=== PATIENT | female | born 1985 | race Caucasian/White ===

== ENCOUNTER 2017-06-13 08:47 | Observation (INO) | payer OTHER ==
[~2017-06-13] VITALS: Ht 165.1 cm; Wt 107.0 kg
[~2017-06-13 08:47] MED LIST: ALBU90OI INH; BENZ100A PO; CEPH500 PO; CLIN1TS TOP; CLINGEL TOP; CLOMID PO; CLON.5; CLON.5 PO; CLON1 PO; CODACE30 PO; CODGUAEL PO; CRUTCH USE; DHA; DOXY100 PO; Desyrel50 MG; ESOM20 PO; GUAI600T33 PO; HYDACE5 PO; HYDMOR4 PO; MEDR150I; METF500 PO; MULVITMINE PO; NAPR500 PO; NAPR550 PO; PHENERMINE; PRAHYD1AE TOP; PRED20 PO; PRENATAL FORMU1 EAC2 PO; PROM25 PO; Prevacid Soluta30 MG; Prevacid Soluta30 MG PO; QUET100 PO; QUET25; Ranitidine HCl150 M1 PO; STOMUL PO; VENL150ER PO; VENL37.5ER; VENL75ER; VENLAFAXINE HC150 MG PO; VITB100 PO; WITHAZ50T TOP; ZOLP10 PO; [UNRECOGNIZED DRUG - CODE]
[2017-06-13 10:03] LABS: BASOPHILS ABSOLUTE AUTO 0.05 K/mm3 (0.00-0.23); BASOPHILS PERCENT AUTO 1 % (0-2); EOSINOPHILS ABSOLUTE AUTO 0.07 K/mm3 (0.00-0.68); EOSINOPHILS PERCENT AUTO 1 % (0-6); Hematocrit 38.8 % (33.0-51.0); Hemoglobin 12.5 g/dL (11.5-16.0); IMMATURE GRAN ABSOLUTE AUTO 0.01 K/mm3 (0.00-0.10); IMMATURE GRAN PERCENT AUTO 0 % (0-1); LYMPHOCYTES ABSOLUTE AUTO 2.83 K/mm3 (0.84-5.20); LYMPHOCYTES PERCENT AUTO 34 % (21-46); MONOCYTES ABSOLUTE AUTO 0.54 K/mm3 (0.16-1.47); MONOCYTES PERCENT AUTO 7 % (4-13); Mean Corpuscular HGB 26.7 pg (26.0-34.0); Mean Corpuscular HGB Conc 32.2 g/dL (31.5-36.5); Mean Corpuscular Volume 83 fL (80-100); Mean Platelet Volume 10.9 fL (9.1-12.4); NEUTROPHILS ABSOLUTE AUTO 4.87 K/mm3 (1.96-9.15); NEUTROPHILS PERCENT AUTO 58 % (41-73); Platelet Count 324 K/mm3 (150-400); RDW Coefficient Variation 14.4 % (11.7-14.2); RDW Standard Deviation 43.1 fL (35.1-46.3); Red Blood Cell Count 4.69 M/mm3 (3.80-5.20); White Blood Cell Count 8.37 K/mm3 (4.00-11.30)
[2017-06-13 10:26] LABS: Alanine Aminotransfer (ALT/SGP 19 U/L (12-78); Albumin, Blood 3.4 g/dL (3.4-5.0); Albumin/Globulin Ratio 0.9 (0.8-1.8); Alk Phos 47 U/L (50-136); Anion Gap 9 mmol/L (6-16); Aspartate Aminotrans (AST/SGOT 8 U/L (12-37); Bilirubin, Total 0.1 mg/dL (0.1-1.0); Blood Urea Nitrogen 16 mg/dL (8-24); Bun/Creatinine Ratio 26.4 (12.0-20.0); CO2, Blood 24 mmol/L (21-32); Calcium, Blood 8.8 mg/dL (8.5-10.1); Chloride, Blood 105 mmol/L (98-108); Creatinine, Blood 0.61 mg/dL (0.40-1.00); Globulin, Blood 3.9 g/dL (2.2-4.0); Glomerular Filtration Rate >60 (60-); Glucose, Blood 106 mg/dL (70-99); Potassium, Blood 3.9 mmol/L (3.5-5.5); Sodium, Blood 138 mmol/L (136-145); Total Protein, Blood 7.3 g/dL (6.4-8.2)
[2017-06-13] MEDS ORDERED: HYDMOR2 PO (16:20)
== END 2017-06-13 16:40 | disposition home or self-care (01) ==
LOC: ER 08:47 → SURS 08:48
PROVIDERS: Physician Assistant; Surgery
PROC: BF13YZZ Fluoroscopy of Gallbladder and Bile Ducts using Other Contrast (ICD-10-PCS; 2017-06-13)
PROC: 0FT44ZZ Resection of Gallbladder, Percutaneous Endoscopic Approach (ICD-10-PCS; principal; 2017-06-13 12:45)
DX: K80.12 Calculus of gallbladder with acute and chronic cholecystitis without obstruction (principal); E11.9 Type 2 diabetes mellitus without complications; F31.9 Bipolar disorder, unspecified; E28.2 Polycystic ovarian syndrome; F17.210 Nicotine dependence, cigarettes, uncomplicated; F41.9 Anxiety disorder, unspecified; A63.0 Anogenital (venereal) warts; Z88.5 Allergy status to narcotic agent; Z88.8 Allergy status to other drugs, medicaments and biological substances; Z79.899 Other long term (current) drug therapy; Z98.890 Other specified postprocedural states
CPT/HCPCS: 36415; 74300; 76705; 80053; 81000; 81025; 82947; 83690; 85025; 88304; 93005; 93010; 96361; 96374; 96375; 99285; C1729; G0378; J0690; J1170; J1885; J2405; J2550; J2710; J3010; J7030; J7120

== ENCOUNTER → 2020-03-04 | Outpatient (CLI) | payer OTHER ==
[~2020-03-04] MED LIST changes: +Acetaminophen325 M1 PO; +DOCU100 PO; +HYDMOR2 PO; +IBUP800 PO; +PRENATE RESTOR1 EACH PO
[2020-03-04 13:19] LABS: BASOPHILS ABSOLUTE AUTO 0.04 K/mm3 (0.00-0.23); BASOPHILS PERCENT AUTO 0 % (0-2); EOSINOPHILS ABSOLUTE AUTO 0.17 K/mm3 (0.00-0.68); EOSINOPHILS PERCENT AUTO 1 % (0-6); Hematocrit 36.9 % (33.0-51.0); Hemoglobin 11.6 g/dL (11.5-16.0); IMMATURE GRAN ABSOLUTE AUTO 0.17 K/mm3 (0.00-0.10); IMMATURE GRAN PERCENT AUTO 1 % (0-1); LYMPHOCYTES ABSOLUTE AUTO 3.52 K/mm3 (0.84-5.20); LYMPHOCYTES PERCENT AUTO 24 % (21-46); MONOCYTES ABSOLUTE AUTO 1.15 K/mm3 (0.16-1.47); MONOCYTES PERCENT AUTO 8 % (4-13); Mean Corpuscular HGB 28.3 pg (26.0-34.0); Mean Corpuscular HGB Conc 31.4 g/dL (31.5-36.5); Mean Corpuscular Volume 90 fL (80-100); Mean Platelet Volume 12.3 fL (9.1-12.4); NEUTROPHILS ABSOLUTE AUTO 9.45 K/mm3 (1.96-9.15); NEUTROPHILS PERCENT AUTO 65 % (41-73); Platelet Count 263 K/mm3 (150-400); RDW Coefficient Variation 13.9 % (11.7-14.2); RDW Standard Deviation 45.3 fL (35.1-46.3)
== END | disposition home or self-care (01) ==
LOC: LAB 09:25 → LAB SHORT 09:25
PROVIDERS: Obstetrics & Gynecology
DX: O09.522 Supervision of elderly multigravida, second trimester (principal); O09.292 Supervision of pregnancy with other poor reproductive or obstetric history, second trimester; O24.112 Pre-existing type 2 diabetes mellitus, in pregnancy, second trimester
CPT/HCPCS: 83036; 85025

== ENCOUNTER 2020-05-11 09:38 | Inpatient (IN) | payer OTHER ==
[~2020-05-11] VITALS: Ht 165.1 cm; Wt 125.6 kg
[~2020-05-11 09:38] MED LIST changes: -Acetaminophen325 M1 PO; -DOCU100 PO; -IBUP800 PO; -PRENATE RESTOR1 EACH PO
[2020-05-11 10:34] LABS: BASOPHILS ABSOLUTE AUTO 0.04 K/mm3 (0.00-0.23); BASOPHILS PERCENT AUTO 0 % (0-2); EOSINOPHILS PERCENT AUTO 2 % (0-6); Hematocrit 34.5 % (33.0-51.0); Hemoglobin 11.3 g/dL (11.5-16.0); IMMATURE GRAN ABSOLUTE AUTO 0.12 K/mm3 (0.00-0.10); IMMATURE GRAN PERCENT AUTO 1 % (0-1); LYMPHOCYTES ABSOLUTE AUTO 2.86 K/mm3 (0.84-5.20); LYMPHOCYTES PERCENT AUTO 23 % (21-46); MONOCYTES ABSOLUTE AUTO 0.98 K/mm3 (0.16-1.47); MONOCYTES PERCENT AUTO 8 % (4-13); Mean Corpuscular HGB 27.8 pg (26.0-34.0); Mean Corpuscular HGB Conc 32.8 g/dL (31.5-36.5); Mean Corpuscular Volume 85 fL (80-100); Mean Platelet Volume 11.5 fL (9.1-12.4); NEUTROPHILS ABSOLUTE AUTO 8.11 K/mm3 (1.96-9.15); NEUTROPHILS PERCENT AUTO 66 % (41-73); Platelet Count 243 K/mm3 (150-400); RDW Coefficient Variation 14.7 % (11.7-14.2); RDW Standard Deviation 45.8 fL (35.1-46.3); Red Blood Cell Count 4.06 M/mm3 (3.80-5.20); White Blood Cell Count 12.31 K/mm3 (4.00-11.30)
--- NOTE | 2020-05-11 11:33 | NUR ---
BACTERIAL CULTURE COLLECTED ON WOUND ON LEFT HIP, IN THE FOLD OF THE LEG AND THE HIP.
--- NOTE | 2020-05-11 12:50 | NUR ---
REPORT TAKEN FROM DEXTER HORTON
--- NOTE | 2020-05-11 13:00 | NUR ---
REPORT GIVEN TO JODIE MOSS
--- NOTE | 2020-05-11 16:00 | NUR ---
LATE ENTRY:RN/LC ROUNDED TO HELP W/ . PT STATES SHE HAS NOT BEEN SUCCESSFUL W/ IN THE PAST BUT WOULD LIKE TO TRY. INSTRUCT/DEMO HAND EXPRESSION TO REMOVE COLOSTRUM AND GET TO NB (IN SCN). INSTRUCTED PT ON CORRECT PUMP SETTINGS AND FREQUENCY OF PUMPING. PT VERBALIZED UNDERSTANDING, DENIES ANY FURTHER QUESTIONS OR CONCERNS.
--- NOTE | 2020-05-11 16:02 | NUR ---
REPORT TO MARIA G GOODEN & KATIA RN
[2020-05-12 06:03] LABS: Hematocrit 33.8 % (33.0-51.0); Hemoglobin 10.8 g/dL (11.5-16.0); Mean Corpuscular HGB 27.8 pg (26.0-34.0); Mean Corpuscular Volume 87 fL (80-100); Mean Platelet Volume 11.8 fL (9.1-12.4); Platelet Count 239 K/mm3 (150-400); RDW Coefficient Variation 14.8 % (11.7-14.2); RDW Standard Deviation 46.5 fL (35.1-46.3); Red Blood Cell Count 3.88 M/mm3 (3.80-5.20); White Blood Cell Count 15.53 K/mm3 (4.00-11.30)
--- NOTE | 2020-05-13 09:07 | NUR ---
DISCHARGE MOTHER EDUCATED ON AND RECEIVED PRINTED DISCHARGE INSTRUCTIONS AND VERBALIZED AN UNDERSTANDING. IV PREVIOUSLY DC'D. GATHERING PERSONAL BELONGINGS. PPFU SCHEDULED. PLANNING TO DISCHARGE HOME LATER THIS MORNING.
[2020-05-13] MEDS ORDERED: CEPH500 PO (09:34)
[2020-05-13] MEDS ORDERED: IBUP800 PO (09:35)
[2020-05-13] MEDS ORDERED: Acetaminophen325 M1 PO (09:35)
[2020-05-13] MEDS ORDERED: DOCU100 PO (09:35)
--- NOTE | 2020-05-13 09:43 | NUR ---
BANDS MATCH BABY.
[2020-06-16] MEDS ORDERED: METF500 PO (12:44)
[2020-06-16] MEDS ORDERED: PRENATE RESTOR1 EACH PO (12:45)
== END 2020-05-13 09:45 | disposition home or self-care (01) | DRG 807 ==
LOC: BC 09:38 → OBS 09:38 → BC 09:39 → OBS 10:09 → BC 10:10
PROVIDERS: ADMIT Obstetrics & Gynecology
PROC: 10E0XZZ Delivery of Products of Conception, External Approach (ICD-10-PCS; principal; 2020-05-11)
PROC: 0KQM0ZZ Repair Perineum Muscle, Open Approach (ICD-10-PCS; 2020-05-11)
DX: O99.824 Streptococcus B carrier state complicating childbirth (principal); Z37.0 Single live birth; Z3A.38 38 weeks gestation of pregnancy; Z20.822 Contact with and (suspected) exposure to COVID-19; O99.214 Obesity complicating childbirth; E66.9 Obesity, unspecified; O24.12 Pre-existing type 2 diabetes mellitus, in childbirth; E11.9 Type 2 diabetes mellitus without complications; O70.1 Second degree perineal laceration during delivery; O69.81X0 Labor and delivery complicated by cord around neck, without compression, not applicable or unspecified; Z87.891 Personal history of nicotine dependence
CPT/HCPCS: 36415; 82947; 85025; 85027; 86850; 86900; 86901; 87070; 87075; 87077; 87147; 87186; 87205; A9270; J0290; J1885; J2210; J2590; J7120

== ENCOUNTER 2020-05-18 00:22 | Emergency (ER) | payer OTHER ==
[~2020-05-18] VITALS: Ht 165.1 cm; Wt 117.9 kg
[~2020-05-18 00:22] MED LIST changes: +Acetaminophen325 M1 PO; +DOCU100 PO; +IBUP800 PO
[2020-05-18 00:37] LABS: BASOPHILS ABSOLUTE AUTO 0.07 K/mm3 (0.00-0.23); BASOPHILS PERCENT AUTO 1 % (0-2); EOSINOPHILS ABSOLUTE AUTO 0.15 K/mm3 (0.00-0.68); EOSINOPHILS PERCENT AUTO 2 % (0-6); Hematocrit 32.7 % (33.0-51.0); Hemoglobin 10.6 g/dL (11.5-16.0); IMMATURE GRAN ABSOLUTE AUTO 0.11 K/mm3 (0.00-0.10); IMMATURE GRAN PERCENT AUTO 1 % (0-1); LYMPHOCYTES ABSOLUTE AUTO 3.13 K/mm3 (0.84-5.20); LYMPHOCYTES PERCENT AUTO 33 % (21-46); MONOCYTES ABSOLUTE AUTO 0.71 K/mm3 (0.16-1.47); MONOCYTES PERCENT AUTO 8 % (4-13); Mean Corpuscular HGB Conc 32.4 g/dL (31.5-36.5); Mean Corpuscular Volume 86 fL (80-100); Mean Platelet Volume 11.2 fL (9.1-12.4); NEUTROPHILS ABSOLUTE AUTO 5.19 K/mm3 (1.96-9.15); NEUTROPHILS PERCENT AUTO 56 % (41-73); Platelet Count 302 K/mm3 (150-400); RDW Coefficient Variation 14.6 % (11.7-14.2); RDW Standard Deviation 46.2 fL (35.1-46.3); Red Blood Cell Count 3.79 M/mm3 (3.80-5.20); White Blood Cell Count 9.36 K/mm3 (4.00-11.30)
[2020-05-18 00:56] LABS: Alanine Aminotransfer (ALT/SGP 24 U/L (12-78); Albumin, Blood 2.2 g/dL (3.4-5.0); Albumin/Globulin Ratio 0.6 (0.8-1.8); Alk Phos 59 U/L (50-136); Anion Gap 7 mmol/L (6-16); Aspartate Aminotrans (AST/SGOT 12 U/L (12-37); Bilirubin, Total 0.1 mg/dL (0.1-1.0); Blood Urea Nitrogen 16 mg/dL (8-24); CO2, Blood 27 mmol/L (21-32); Chloride, Blood 106 mmol/L (98-108); Creatinine, Blood 0.73 mg/dL (0.40-1.00); Globulin, Blood 3.6 g/dL (2.2-4.0); Glomerular Filtration Rate >60 (60-); Glucose, Blood 92 mg/dL (70-99); Potassium, Blood 3.8 mmol/L (3.5-5.5); Sodium, Blood 140 mmol/L (136-145); Total Protein, Blood 5.8 g/dL (6.4-8.2); Troponin I <0.015 ng/mL (0.000-0.040)
[2020-06-16] MEDS ORDERED: METF500 PO (12:44)
[2020-06-16] MEDS ORDERED: PRENATE RESTOR1 EACH PO (12:45)
== END 2020-05-18 02:14 | disposition home or self-care (01) ==
LOC: ER 00:22
PROVIDERS: Emergency Medicine
DX: O90.89 Other complications of the puerperium, not elsewhere classified (principal); R07.9 Chest pain, unspecified; R11.0 Nausea; R42 Dizziness and giddiness; O99.335 Smoking (tobacco) complicating the puerperium; F17.200 Nicotine dependence, unspecified, uncomplicated; O24.33 Unspecified pre-existing diabetes mellitus in the puerperium; E11.9 Type 2 diabetes mellitus without complications; Z79.84 Long term (current) use of oral hypoglycemic drugs; Z79.899 Other long term (current) drug therapy; Z88.5 Allergy status to narcotic agent; Z88.8 Allergy status to other drugs, medicaments and biological substances
CPT/HCPCS: 36415; 71260; 80053; 84484; 85025; 93005; 93010; 96361; 96374; 99285-25; J1885; J7030; Q9967

== ENCOUNTER 2020-06-24 10:48 | Day surgery (SDC) | payer OTHER ==
[~2020-06-24] VITALS: Ht 162.6 cm; Wt 115.4 kg
[~2020-06-24 10:48] MED LIST changes: +PRENATE RESTOR1 EACH PO
--- NOTE | 2020-06-24 11:40 | NUR ---
06/24/20 1140 Karson Love CALL LIGHT WITHIN REACH
--- NOTE | 2020-06-24 12:17 | NUR ---
06/24/20 1217 Adarsh Martinez ABDOMINAL AREA PREPPED BY ORSC.KNM W/ DURAPREP. DREW AREA PREPPED BY ORSC.CRISTINA WITH BETADINE SOLUTION. BUPIVACAINE 0.5% 30 MLS MIXED WITH EPI 0.15ML PER ORDER TO MAKE BUPIVACAINE 0.5% 1:200,000 FOR INJECTION AT [facility] BY DR. SANCHEZ. 10 MLS OF THIS INJECTED BY DR. SANCHEZ AT [facility].
== END 2020-06-24 13:10 | disposition home or self-care (01) ==
LOC: ORSCSDS 10:48
PROVIDERS: Obstetrics & Gynecology
PROC: 0UT74ZZ Resection of Bilateral Fallopian Tubes, Percutaneous Endoscopic Approach (ICD-10-PCS; principal; 2020-06-24 12:00)
DX: Z30.2 Encounter for sterilization (principal); E11.9 Type 2 diabetes mellitus without complications; E66.01 Morbid (severe) obesity due to excess calories; Z68.41 Body mass index [BMI] 40.0-44.9, adult; Z79.84 Long term (current) use of oral hypoglycemic drugs; Z79.899 Other long term (current) drug therapy
CPT/HCPCS: 82947; 88302; J0171; J0330; J1100; J1885; J2250; J2405; J2704; J3010; J7120

== ENCOUNTER 2020-10-31 05:22 | Observation (INO) | payer OTHER ==
[~2020-10-31] VITALS: Ht 165.1 cm; Wt 113.4 kg
[2020-10-31 05:49] LABS: BASOPHILS ABSOLUTE AUTO 0.08 K/mm3 (0.00-0.23); BASOPHILS PERCENT AUTO 1 % (0-2); EOSINOPHILS ABSOLUTE AUTO 0.11 K/mm3 (0.00-0.68); EOSINOPHILS PERCENT AUTO 1 % (0-6); Hematocrit 38.1 % (33.0-51.0); Hemoglobin 12.6 g/dL (11.5-16.0); Mean Corpuscular HGB 29.1 pg (26.0-34.0); Mean Corpuscular HGB Conc 33.1 g/dL (31.5-36.5); Mean Corpuscular Volume 88 fL (80-100); Mean Platelet Volume 10.7 fL (9.1-12.4); Platelet Count 331 K/mm3 (150-400); RDW Coefficient Variation 14.5 % (11.7-14.2); RDW Standard Deviation 46.4 fL (35.1-46.3); Red Blood Cell Count 4.33 M/mm3 (3.80-5.20); White Blood Cell Count 15.37 K/mm3 (4.00-11.30)
[2020-10-31 05:52] LABS: IMMATURE GRAN ABSOLUTE AUTO 0.06 K/mm3 (0.00-0.10); IMMATURE GRAN PERCENT AUTO 0 % (0-1); LYMPHOCYTES ABSOLUTE AUTO 4.01 K/mm3 (0.84-5.20); LYMPHOCYTES PERCENT AUTO 26 % (21-46); MONOCYTES ABSOLUTE AUTO 1.05 K/mm3 (0.16-1.47); MONOCYTES PERCENT AUTO 7 % (4-13); NEUTROPHILS ABSOLUTE AUTO 10.06 K/mm3 (1.96-9.15); NEUTROPHILS PERCENT AUTO 66 % (41-73)
[2020-10-31 06:07] LABS: Alanine Aminotransfer (ALT/SGP 24 U/L (12-78); Albumin, Blood 3.5 g/dL (3.4-5.0); Albumin/Globulin Ratio 0.9 (0.8-1.8); Alk Phos 77 U/L (50-136); Anion Gap 12 mmol/L (6-16); Aspartate Aminotrans (AST/SGOT 14 U/L (12-37); Bilirubin, Total 0.4 mg/dL (0.1-1.0); Blood Urea Nitrogen 16 mg/dL (8-24); Bun/Creatinine Ratio 10.3 (12.0-20.0); CO2, Blood 19 mmol/L (21-32); Calcium, Blood 8.9 mg/dL (8.5-10.1); Chloride, Blood 111 mmol/L (98-108); Creatinine, Blood 1.56 mg/dL (0.40-1.00); Ethanol (Alcohol), Blood, Med <3 mg/dL; Globulin, Blood 3.7 g/dL (2.2-4.0); Glomerular Filtration Rate 38 (60-); Glucose, Blood 110 mg/dL (70-99); Potassium, Blood 3.6 mmol/L (3.5-5.5); Salicylate <1.7 mg/dL (2.8-20.0); Sodium, Blood 142 mmol/L (136-145); Total Protein, Blood 7.2 g/dL (6.4-8.2)
[2020-10-31 06:14] LABS: Acetaminophen, Random <2.0 ug/mL (10.0-30.0)
[2020-10-31 06:23] LABS: Base Excess Venous -5.6 mmol/L; Bicarbonate Venous 20.9 mmol/L (24.0-30.0); PCO2 Venous 27.3 mmHg (38-42); PO2 Venous 105 mmHg (38-42); pH Blood Venous 7.44 (7.34-7.37)
[2020-10-31 06:25] LABS: Creatine Kinase MB 2.5 ng/mL (0.0-3.6); Creatine Kinase MB Index 1.6 (0.0-4.0)
[2020-10-31 08:12] LABS: Source, Urine Clean Catch
[2020-10-31 08:20] LABS: Bilirubin, Urine Neg (Neg); Blood, Urine 2+ (Neg); Glucose Qualitative, Urine 1+ (Neg); Ketones, Urine Neg (Neg); Leukocyte Esterase, Urine 1+ (Neg); Nitrite, Urine Neg (Neg); Protein, Urine 3+ (Neg); Urobilinogen, Urine NORM (Normal)
[2020-10-31 08:50] LABS: Appearance, Urine Hazy (Clear); Color, Urine Pale Yellow (P-Yellow)
[2020-10-31 08:51] LABS: Bacteria Few /hpf; Hyaline Casts 0-2 /lpf (0-2); Mucus Light (0-Heavy); Squamous Epithelial Cells Mod /hpf (Few); WBC Cast Rare /lpf (0)
[2020-10-31 08:52] LABS: U Amphetamine Screen Not Detected; U Barbituate Screen Not Detected; U Benzodiazapine Screen Not Detected; U Buprenorphine Screen Not Detected; U Cannabinoids Screen Not Detected; U Cocaine Screen Not Detected; U Methadone Screen Not Detected; U Methamphetamine Screen DETECTED; U Opiates Screen Not Detected; U Oxycodone Screen Not Detected; U Phencyclidine Screen Not Detected; U Propoxyphene Screen Not Detected
[2020-10-31 10:10] LABS: Test Name ETHYLENE GLYCOL; Test Name METHANOL QUANT
[2020-10-31 10:44] LABS: Bun/Creatinine Ratio 10.2 (12.0-20.0); Calcium, Blood 9.1 mg/dL (8.5-10.1); Creatinine, Blood 1.66 mg/dL (0.40-1.00); Potassium, Blood 4.1 mmol/L (3.5-5.5)
[2020-10-31 11:45] LABS: Bun/Creatinine Ratio 10.4 (12.0-20.0); Calcium, Blood 8.6 mg/dL (8.5-10.1); Creatinine, Blood 1.64 mg/dL (0.40-1.00); Potassium, Blood 3.7 mmol/L (3.5-5.5)
[2020-10-31 13:23] LABS: Bun/Creatinine Ratio 10.1 (12.0-20.0); Calcium, Blood 8.6 mg/dL (8.5-10.1); Creatinine, Blood 1.69 mg/dL (0.40-1.00); Potassium, Blood 3.6 mmol/L (3.5-5.5)
[2020-10-31 16:43] LABS: Result SEE SEPERATE REPORT
[2020-10-31 17:03] LABS: Result SEE SEPERATE REPORT
--- NOTE | 2020-10-31 18:16 | NUR ---
SHIFT SUMMARY; ASSUMED CARE FROM ER. SITTER PRESENT AT BEDSIDE, CAMERA MONITORING IN PLACE. SLEEPY THROUGHOUT SHIFT BUT WAKES EASILY. REPORTS USING METH THIS AM AND UNCLEAR IF SWALLOWED ANTIFREEZE OR TOOK METFORMIN FOR INTENTIONAL OD. ETHYNOL GLYCOL LABS PENDING ON ADMIT. VSS, CALM AND COOPERATIVE. ROOM SECURITY CHECKED AND BELONGINGS LOCKED IN CLOSET. LAB RESULTS IN AFTERNOON SHOWED NO ETHYLENE GLYCOL IN BLOOD WORK. STATES ATTEMPTED OD DUE TO PAIN. HX OF BIPOLAR. CURRENTLY LIVES AT HOME WITH MOTHER. WILL CONTINUE MONITORING SITTER. REPORT TO AGRONOMY TECHNICIAN FOR CHANGE OF SHIFT.
--- NOTE | 2020-10-31 19:25 | NUR ---
PATIENT ON PHONE WITH MOTHER AND REPORTS "LIKE SOME BAD DRUGS, YA KNOW"; REPORTS SHE TOOK SOME CHARCOAL PILLS MIXED IN MILK AND "THAT IS WHAT REALLY SAVED ME".
--- NOTE | 2020-10-31 19:44 | NUR ---
POISON CONTROL CALLED TO REPORT PATIENT'S METHANOL IS NEGATIVE; NO NEED FOR 2000 DRUG; NO MEDICATION SCHEDULED FOR 2000; THEY WILL CALL BACK IN A FEW HOURS FOR UPDATE.
--- NOTE | 2020-10-31 21:00 | NUR ---
ASSUMED CARE OF PATIENT AT APPROXIMATELY 1900 FROM MICHAEL Allen RN. PATIENT ALERT AND ORIENTED X4; APPEARS DEPRESSED. PATIENT REPORTS PAIN IN BED; ABLE TO REST IN BED. ONE ASSIST TO BATHROOM. HIGH SI PRECAUTIONS; 1:1 SITTER IN ROOM. PATIENT DENIES NAUSEA OR DIZZINESS. ST ON TELE; OXYGEN SATURATION ABOVE 90% ON ROOM AIR. NS INFUSING PER ORDER.
--- NOTE | 2020-10-31 22:41 | NUR ---
SHERRI FROM POISON CONTROL CALLED TO SAY THEY ARE CLOSING THIER CASE ON THE PATIENT DUE TO VITAL SIGNS BEING STABLE; PATIENT BEING ABLE TO EAT A SANDWICH AND DRINK WATER; ORIENTATION CLEARING UP.
--- NOTE | 2020-10-31 22:44 | NUR ---
SHERRI FROM POISON CONTROL CALLED BACK TO REPORT SHE WILL KEEP CASE OPEN DUE TO CREATININE; WILL CALL IN MORNING FOR CREATININE LEVEL.
[2020-11-01 04:54] LABS: Alanine Aminotransfer (ALT/SGP 23 U/L (12-78); Albumin, Blood 2.9 g/dL (3.4-5.0); Albumin/Globulin Ratio 0.8 (0.8-1.8); Alk Phos 72 U/L (50-136); Anion Gap 6 mmol/L (6-16); Aspartate Aminotrans (AST/SGOT 12 U/L (12-37); Bilirubin, Total 0.2 mg/dL (0.1-1.0); Blood Urea Nitrogen 18 mg/dL (8-24); Bun/Creatinine Ratio 18.3 (12.0-20.0); CO2, Blood 24 mmol/L (21-32); Calcium, Blood 7.7 mg/dL (8.5-10.1); Chloride, Blood 110 mmol/L (98-108); Creatinine, Blood 0.98 mg/dL (0.40-1.00); Globulin, Blood 3.6 g/dL (2.2-4.0); Glomerular Filtration Rate >60 (60-); Glucose, Blood 92 mg/dL (70-99); Magnesium, Blood 2.2 mg/dL (1.6-2.4); Phosphorus, Blood 3.1 mg/dL (2.5-4.9); Potassium, Blood 3.5 mmol/L (3.5-5.5); Sodium, Blood 140 mmol/L (136-145); Total Protein, Blood 6.5 g/dL (6.4-8.2)
--- NOTE | 2020-11-01 06:20 | NUR ---
PATIENT SLEPT MOST OF NIGHT; NO ACUTE CHANGES; VSS.
--- NOTE | 2020-11-01 18:16 | NUR ---
TRANSFER TO MEDICAL FLOOR PT MET TODAY WITH DR. GONZALEZ AND HER SI STATUS WAS DOWNGRADED TO LOW. PT REPORTED HAVING NO FEELINGS/THOUGHTS OR PLANS OF SUICIDE TODAY. PT WAS LETHARGIC BUT AROUSABLE AND ORIENTED. VS STABLE, PT ON RA. POISON CONTROL WAS FOLLOWING BUT SIGNED OFF TODAY SINCE KIDNEY FUNCTION HAD IMPROVED. 1:1 SITTER WAS DISCONTINUED TODAY SUICIDE RISK/PRECAUTIONS WERE LESSENED. PT WAS TRANSFERRED TO MEDICAL FLOOR RM [id number] REPORT GIVEN TO MARIA G TODD
--- NOTE | 2020-11-01 18:32 | NUR ---
SHIFT SUMMARY PT TRANSFERRED TO UNIT FROM PCU 3 THIS SHIFT. RECEIVED REPORT FROM MARIA G ANDERSON. PT AAOX4, ABLE TO MAKE NEEDS KNOWN, PLEASANT AND COOPERATIVE TO CARE. SBA TO BATHROOM. PT DENIED ANY SUICIDAL IDEATIONS, DENIES FEELING OF INCREASE ANXIETY / DEPRESSION AT THIS TIME. PT CONTINUES ON LOW SUICIDAL PRECAUTIONS. ROOM INSPECTED BY THIS RN PRIOR TO PT TRANSFER. PT CALM AND COMFORTABLE IN ROOM AT THIS TIME. BED AT LOWEST POSITION. CALL LIGHT WITHIN REACH.
--- NOTE | 2020-11-02 04:33 | NUR ---
SHIFT SUMMARY AOX4. VSS. TELE ST @116. DENIES PAIN, N/V OR SOB. DENIES ANY SI THOUGHTS OR PLANS. DROWSY, STATES SHES "TIRED". WITHDRAWN. FLAT AFFECT. TEARFUL THIS AM. STATES SHE WANTS TO GO HOME TO HER CHILDREN. PT ON MENSES. CONTINENT OF URINE. NS @100ML/HR. CALL LIGHT IN REACH, [facility].
[2020-11-02] MEDS ORDERED: TRAZ50 PO (14:19)
--- NOTE | 2020-11-02 17:42 | NUR ---
DISCHARGE SUMMARY PT DISCHARGE TO HOME THIS SHIFT. AT APPROX 1710. PT's PRESENT DURING D/C PROCESS. PT VERBALIZED UNDERSTANDING OF DISCHARGE TEACHINGS AND INSTRUCTIONS. PT AAOX4, ABLE TO MAKE NEEDS KNOWN, PLEASANT AND COOPERATIVE TO CARE. PT DENIES ANY SUICIAL IDEATIONS OR PLANS T/O SHIFT. PT PLEASANT AND COOPERATIVE TO CARE T/O SHIFT. IV LINE AND TELE DISCONTINUED PRIOR TO D/C. NO C/O PAIN OR ANY DISCOMFORT THIS SHIFT, NO CONCERNS OR ISSUES NOTED FROM PT PRIOR TO D/C. DISCHARGE PACKET GIVEN TO PT UPON DISCHARGE.
== END 2020-11-02 17:18 | disposition home or self-care (01) ==
LOC: ER 05:22 → PCU 05:23 → MEDS 11-01 18:03
PROVIDERS: Emergency Medicine; ADMIT Internal Medicine
DX: F31.89 Other bipolar disorder (principal); N17.9 Acute kidney failure, unspecified; G92 Toxic encephalopathy; E11.9 Type 2 diabetes mellitus without complications; F17.210 Nicotine dependence, cigarettes, uncomplicated; F15.10 Other stimulant abuse, uncomplicated; R07.9 Chest pain, unspecified; R11.10 Vomiting, unspecified; K21.9 Gastro-esophageal reflux disease without esophagitis; Z88.5 Allergy status to narcotic agent; Z88.8 Allergy status to other drugs, medicaments and biological substances; Z79.84 Long term (current) use of oral hypoglycemic drugs
CPT/HCPCS: 36415; 71045; 80048; 80053; 81001; 81025; 82550; 82553; 82693; 82803; 82947; 83605; 83735; 83930; 84100; 85025; 87077; 87086; 87186; 93005; 93010; 96365; 96372; 96375; 99285-25; A9270; G0378; G0480; J1451; J1650; J2060; J2405; J7030

== ENCOUNTER 2021-10-14 00:39 | Emergency (ER) | payer OTHER ==
[~2021-10-14] VITALS: Ht 165.1 cm; Wt 108.9 kg
[~2021-10-14 00:39] MED LIST changes: +TRAZ50 PO
[2021-10-14 01:15] LABS: BASOPHILS ABSOLUTE AUTO 0.03 K/mm3 (0.00-0.23); BASOPHILS PERCENT AUTO 1 % (0-2); EOSINOPHILS ABSOLUTE AUTO 0.02 K/mm3 (0.00-0.68); EOSINOPHILS PERCENT AUTO 0 % (0-6); Hematocrit 40.1 % (33.0-51.0); Hemoglobin 13.2 g/dL (11.5-16.0); IMMATURE GRAN ABSOLUTE AUTO 0.02 K/mm3 (0.00-0.10); IMMATURE GRAN PERCENT AUTO 0 % (0-1); LYMPHOCYTES ABSOLUTE AUTO 0.56 K/mm3 (0.84-5.20); LYMPHOCYTES PERCENT AUTO 12 % (21-46); MONOCYTES ABSOLUTE AUTO 0.69 K/mm3 (0.16-1.47); MONOCYTES PERCENT AUTO 15 % (4-13); Mean Corpuscular HGB 28.5 pg (26.0-34.0); Mean Corpuscular HGB Conc 32.9 g/dL (31.5-36.5); Mean Corpuscular Volume 87 fL (80-100); Mean Platelet Volume 11.5 fL (9.1-12.4); NEUTROPHILS PERCENT AUTO 72 % (41-73); Platelet Count 253 K/mm3 (150-400); RDW Standard Deviation 44.5 fL (35.1-46.3); Red Blood Cell Count 4.63 M/mm3 (3.80-5.20); White Blood Cell Count 4.62 K/mm3 (4.00-11.30)
[2021-10-14 01:41] LABS: Albumin, Blood 3.7 g/dL (3.4-5.0); Albumin/Globulin Ratio 1.1 (0.8-1.8); Bilirubin, Total 0.2 mg/dL (0.1-1.0); Bun/Creatinine Ratio 12.7 (12.0-20.0); Calcium, Blood 9.6 mg/dL (8.5-10.1); Creatinine, Blood 0.79 mg/dL (0.40-1.00); Globulin, Blood 3.4 g/dL (2.2-4.0); Potassium, Blood 3.8 mmol/L (3.5-5.5); Total Protein, Blood 7.1 g/dL (6.4-8.2)
[2021-10-14 01:56] LABS: Influenza A, PCR NEGATIVE (NEGATIVE); Influenza B, PCR NEGATIVE (NEGATIVE); Resp Syncytial Virus, PCR NEGATIVE (NEGATIVE)
[2021-10-14 04:19] LABS: SARS-Cov-2 (COVID-19) PCR, MMC POSITIVE (NEGATIVE)
== END 2021-10-14 03:45 | disposition left against medical advice (07) ==
LOC: ER 00:39
PROVIDERS: Student in an Organized Health Care Education/Training Program
DX: R11.2 Nausea with vomiting, unspecified (principal); R19.7 Diarrhea, unspecified; U07.1 COVID-19; Z53.21 Procedure and treatment not carried out due to patient leaving prior to being seen by health care provider
CPT/HCPCS: 0241U; 36415; 80053; 82947; 85025

== ENCOUNTER 2022-08-28 12:52 | Observation (INO) | payer OTHER ==
[~2022-08-28] VITALS: Ht 165.1 cm; Wt 108.9 kg
[~2022-08-28 12:52] MED LIST changes: +IBU800 MG PO
[2022-08-28] MEDS ORDERED: Norethindrone0.35 MG PO (14:01)
[2022-08-28 14:19] LABS: Source, Urine Clean Catch
[2022-08-28 14:30] LABS: Appearance, Urine Cloudy (Clear); Blood, Urine 5+ (Neg); Color, Urine Amber (P-Yellow); Glucose Qualitative, Urine Neg (Neg); Ketones, Urine 1+ (Neg); Leukocyte Esterase, Urine 1+ (Neg); Nitrite, Urine Pos (Neg); Protein, Urine 3+ (Neg); Specific Gravity, Urine 1.025 (1.003-1.022); Urobilinogen, Urine 1+ (Normal)
[2022-08-28 14:36] LABS: BASOPHILS ABSOLUTE AUTO 0.05 K/mm3 (0.00-0.23); BASOPHILS PERCENT AUTO 1 % (0-2); EOSINOPHILS ABSOLUTE AUTO 0.04 K/mm3 (0.00-0.68); EOSINOPHILS PERCENT AUTO 1 % (0-6); Hematocrit 44.3 % (33.0-51.0); Hemoglobin 14.6 g/dL (11.5-16.0); IMMATURE GRAN ABSOLUTE AUTO 0.01 K/mm3 (0.00-0.10); IMMATURE GRAN PERCENT AUTO 0 % (0-1); LYMPHOCYTES ABSOLUTE AUTO 2.22 K/mm3 (0.84-5.20); LYMPHOCYTES PERCENT AUTO 26 % (21-46); MONOCYTES ABSOLUTE AUTO 0.56 K/mm3 (0.16-1.47); MONOCYTES PERCENT AUTO 6 % (4-13); Mean Corpuscular HGB 29.6 pg (26.0-34.0); Mean Corpuscular Volume 90 fL (80-100); Mean Platelet Volume 11.1 fL (9.1-12.4); NEUTROPHILS ABSOLUTE AUTO 5.83 K/mm3 (1.96-9.15); NEUTROPHILS PERCENT AUTO 67 % (41-73); Platelet Count 361 K/mm3 (150-400); RDW Coefficient Variation 13.2 % (11.7-14.2); RDW Standard Deviation 43.1 fL (35.1-46.3); Red Blood Cell Count 4.93 M/mm3 (3.80-5.20); White Blood Cell Count 8.71 K/mm3 (4.00-11.30)
[2022-08-28 14:42] LABS: Bilirubin, Urine 1+ (Neg)
[2022-08-28 14:44] LABS: Bacteria Many /hpf; Hyaline Casts 0-2 /lpf (0-2); Red Blood Cells, Urine TNTC /hpf (0-2); Squamous Epithelial Cells Many /hpf (Few)
[2022-08-28 14:45] LABS: U Amphetamine Screen Not Detected; U Barbituate Screen Not Detected; U Benzodiazapine Screen Not Detected; U Buprenorphine Screen Not Detected; U Cannabinoids Screen DETECTED; U Cocaine Screen Not Detected; U Methadone Screen Not Detected; U Methamphetamine Screen Not Detected; U Opiates Screen Not Detected; U Oxycodone Screen Not Detected; U Phencyclidine Screen Not Detected
[2022-08-28 14:46] LABS: U Propoxyphene Screen Not Detected
[2022-08-28 14:59] LABS: Acetaminophen, Random <2.0 ug/mL (10.0-30.0); Alanine Aminotransfer (ALT/SGP 26 U/L (12-78); Albumin, Blood 3.7 g/dL (3.4-5.0); Albumin/Globulin Ratio 1.1 (0.8-1.8); Alk Phos 62 U/L (50-136); Anion Gap 8 mmol/L (6-16); Aspartate Aminotrans (AST/SGOT 18 U/L (12-37); Bilirubin, Total 0.3 mg/dL (0.1-1.0); Blood Urea Nitrogen 12 mg/dL (8-24); Bun/Creatinine Ratio 15.2 (12.0-20.0); CO2, Blood 24 mmol/L (21-32); Calcium, Blood 9.2 mg/dL (8.5-10.1); Chloride, Blood 110 mmol/L (98-108); Creatinine, Blood 0.79 mg/dL (0.40-1.00); Ethanol (Alcohol), Blood, Med <3 mg/dL; Globulin, Blood 3.5 g/dL (2.2-4.0); Glomerular Filtration Rate 99 (60-); Glucose, Blood 110 mg/dL (70-99); Potassium, Blood 4.1 mmol/L (3.5-5.5); Salicylate <1.7 mg/dL (2.8-20.0); Sodium, Blood 142 mmol/L (136-145); Total Protein, Blood 7.2 g/dL (6.4-8.2)
[2022-08-29 10:00] VITALS: BP 129/85
[2022-08-29] MEDS ORDERED: ABILIFY MYCITE5 M2 PO (16:17)
[2022-08-29] MEDS ORDERED: CEPH500 PO (16:17)
== END 2022-08-29 17:00 | disposition home or self-care (01) ==
LOC: ER 12:52 → EOR 12:53
PROVIDERS: ADMIT Student in an Organized Health Care Education/Training Program
DX: F31.32 Bipolar disorder, current episode depressed, moderate (principal); E11.9 Type 2 diabetes mellitus without complications; Z88.5 Allergy status to narcotic agent; Z88.8 Allergy status to other drugs, medicaments and biological substances; Z79.84 Long term (current) use of oral hypoglycemic drugs; Z79.899 Other long term (current) drug therapy
CPT/HCPCS: 80053; 81001; 81025; 85025; 87086; 87147; 93005; 93010; A9270; G0480

== ENCOUNTER → 2022-11-13 | Outpatient (CLI) | payer OTHER ==
[~2022-11-13] MED LIST changes: +ABILIFY MYCITE5 M2 PO; +Norethindrone0.35 MG PO
[2022-11-15 14:09] LABS: HPV 16 Negative (Negative); HPV 18 Negative (Negative); HPV OTHER HR TYPES Negative (Negative)
== END | disposition home or self-care (01) ==
LOC: LAB 11:35 → LAB SHORT 11:35
PROVIDERS: Obstetrics & Gynecology
DX: Z01.419 Encounter for gynecological examination (general) (routine) without abnormal findings (principal)
CPT/HCPCS: 87624; G0145

== ENCOUNTER → 2024-02-27 | Outpatient (CLI) | payer OTHER ==
[~2024-02-27] MED LIST changes: +Adipex-P37.5 M1 PO; +Flagyl500 MG PO
== END | disposition home or self-care (01) ==
LOC: LAB 18:41 → LAB SHORT 18:41
DX: R30.0 Dysuria (principal)
CPT/HCPCS: 87086

== ENCOUNTER 2024-07-06 10:04 | Observation (INO) | payer OTHER ==
[~2024-07-06] VITALS: Ht 165.1 cm; Wt 115.8 kg
[2024-07-06] MEDS ORDERED: ATORVASTATIN CA20 MG PO (10:19)
[2024-07-06] MEDS ORDERED: OMEP20ER PO (10:20)
[2024-07-06 10:35] LABS: BASOPHILS ABSOLUTE AUTO 0.07 K/mm3 (0.00-0.23); BASOPHILS PERCENT AUTO 1 % (0-2); EOSINOPHILS ABSOLUTE AUTO 0.12 K/mm3 (0.00-0.68); EOSINOPHILS PERCENT AUTO 1 % (0-6); Hematocrit 44.5 % (33.0-51.0); Hemoglobin 14.9 g/dL (11.5-16.0); IMMATURE GRAN ABSOLUTE AUTO 0.02 K/mm3 (0.00-0.10); IMMATURE GRAN PERCENT AUTO 0 % (0-1); LYMPHOCYTES ABSOLUTE AUTO 3.22 K/mm3 (0.84-5.20); LYMPHOCYTES PERCENT AUTO 36 % (21-46); MONOCYTES PERCENT AUTO 7 % (4-13); Mean Corpuscular HGB Conc 33.5 g/dL (31.5-36.5); Mean Corpuscular Volume 90 fL (80-100); Mean Platelet Volume 10.7 fL (9.1-12.4); NEUTROPHILS ABSOLUTE AUTO 5.01 K/mm3 (1.96-9.15); NEUTROPHILS PERCENT AUTO 56 % (41-73); Platelet Count 279 K/mm3 (150-400); RDW Coefficient Variation 13.2 % (11.7-14.2); RDW Standard Deviation 43.1 fL (35.1-46.3); Red Blood Cell Count 4.96 M/mm3 (3.80-5.20); White Blood Cell Count 9.04 K/mm3 (4.00-11.30)
[2024-07-06 10:48] LABS: Albumin, Blood 3.4 g/dL (3.4-5.0); Bilirubin, Total 0.5 mg/dL (0.1-1.0); Bun/Creatinine Ratio 13.2 (12.0-20.0); Calcium, Blood 8.4 mg/dL (8.5-10.1); Creatinine, Blood 0.76 mg/dL (0.40-1.00); Globulin, Blood 3.5 g/dL (2.2-4.0); Potassium, Blood 4.1 mmol/L (3.5-5.5); Total Protein, Blood 6.9 g/dL (6.4-8.2)
[2024-07-06] MEDS ORDERED: Pantoprazole Sodium 40 MG Injection IV SCH (13:00)
[2024-07-06] MEDS ORDERED: Ondansetron HCl 2 MG / ML 2ML Vial IV PRN (13:00)
[2024-07-06 13:41] LABS: Source, Urine Clean Catch
[2024-07-06 13:45] LABS: Appearance, Urine Clear (Clear); Bilirubin, Urine Neg (Neg); Blood, Urine Neg (Neg); Color, Urine Yellow (P-Yellow); Glucose Qualitative, Urine Neg (Neg); Ketones, Urine Neg (Neg); Leukocyte Esterase, Urine Neg (Neg); Nitrite, Urine Neg (Neg); Protein, Urine 1+ (Neg); Urobilinogen, Urine NORM (Normal)
[2024-07-06 16:21] VITALS: BP 140/89
[2024-07-06] MEDS ORDERED: Venlafaxine HCl 75 MG CapCR PO SCH (17:51)
[2024-07-06] MEDS ORDERED: ARIPiprazole 5 MG Tab PO SCH (17:55)
[2024-07-06] MEDS ORDERED: Atorvastatin 10 MG Tab PO SCH (18:00)
--- NOTE | 2024-07-06 19:22 | NUR ---
pt arrived a/o x4 minimal pain and cooperative with care. admission done.
[2024-07-06 19:48] VITALS: BP 141/91
[2024-07-07 04:22] VITALS: BP 121/83
[2024-07-07 05:07] LABS: BASOPHILS ABSOLUTE AUTO 0.08 K/mm3 (0.00-0.23); BASOPHILS PERCENT AUTO 1 % (0-2); EOSINOPHILS ABSOLUTE AUTO 0.22 K/mm3 (0.00-0.68); EOSINOPHILS PERCENT AUTO 2 % (0-6); Hematocrit 44.6 % (33.0-51.0); Hemoglobin 14.9 g/dL (11.5-16.0); IMMATURE GRAN ABSOLUTE AUTO 0.03 K/mm3 (0.00-0.10); IMMATURE GRAN PERCENT AUTO 0 % (0-1); LYMPHOCYTES ABSOLUTE AUTO 3.87 K/mm3 (0.84-5.20); LYMPHOCYTES PERCENT AUTO 40 % (21-46); MONOCYTES ABSOLUTE AUTO 0.73 K/mm3 (0.16-1.47); MONOCYTES PERCENT AUTO 8 % (4-13); Mean Corpuscular HGB 30.7 pg (26.0-34.0); Mean Corpuscular HGB Conc 33.4 g/dL (31.5-36.5); Mean Corpuscular Volume 92 fL (80-100); Mean Platelet Volume 10.9 fL (9.1-12.4); NEUTROPHILS ABSOLUTE AUTO 4.77 K/mm3 (1.96-9.15); NEUTROPHILS PERCENT AUTO 49 % (41-73); Platelet Count 286 K/mm3 (150-400); RDW Coefficient Variation 13.4 % (11.7-14.2); RDW Standard Deviation 45.2 fL (35.1-46.3); Red Blood Cell Count 4.86 M/mm3 (3.80-5.20)
[2024-07-07 05:31] LABS: Albumin, Blood 3.3 g/dL (3.4-5.0); Albumin/Globulin Ratio 0.9 (0.8-1.8); Bilirubin, Total 0.4 mg/dL (0.1-1.0); Bun/Creatinine Ratio 10.2 (12.0-20.0); Calcium, Blood 8.5 mg/dL (8.5-10.1); Creatinine, Blood 0.79 mg/dL (0.40-1.00); Globulin, Blood 3.5 g/dL (2.2-4.0); Potassium, Blood 3.7 mmol/L (3.5-5.5); Total Protein, Blood 6.8 g/dL (6.4-8.2)
--- NOTE | 2024-07-07 05:35 | NUR ---
SHIFT SUMMARY PT INDEPENDENT IN ROOM. DENIES ANY ACID REFLUX SYMPTOMS DURING THE NIGHT. PT WITHOUT EMESIS. PT WITH WATER AND ICE CHIPS UNTIL 10 AM, THEN WILL BE NPO FOR EGD LATER TODAY. PT SLEPT INTERMITTENTLY DURING THE NIGHT.
[2024-07-07 07:53] VITALS: BP 138/96
[2024-07-07] MEDS ORDERED: Venlafaxine HCl 75 MG CapCR PO SCH (09:00)
[2024-07-07] MEDS ORDERED: ARIPiprazole 5 MG Tab PO SCH (09:00)
[2024-07-07] MEDS ORDERED: Lactated Ringer's 1,000 ML IV SCH (12:50)
[2024-07-07 13:37] VITALS: BP 138/91
--- NOTE | 2024-07-07 13:49 | NUR ---
History, Chart, Medications and Allergies reviewed before start of procedure. Lungs clear T/O to Auscultation. Patient confirms NPO status and agrees with scheduled surgery. Pre-Op teaching done. Pt verbalizes understanding.
[2024-07-07 14:07] LABS: Campylobacter Sp Not Detected (NOT DETECT); E. Coli O157 Not Detected (NOT DETECT); Enteroaggregative E. coli-EAEC Not Detected (NOT DETECT); Enteropathogenic E. coli-EPEC Not Detected (NOT DETECT); Enterotoxigenic E. coli-ETEC Not Detected (NOT DETECT); Plesiomonas Shigelloides Not Detected (NOT DETECT); Salmonella Sp Not Detected (NOT DETECT); Shiga Toxin-prod E. coli-STEC Not Detected (NOT DETECT); Shigella/Enteroin E. coli-EIEC Not Detected (NOT DETECT); Vibrio Cholerae Not Detected (NOT DETECT); Vibrio Sp Not Detected (NOT DETECT); Yersinia Enterocolitica Not Detected (NOT DETECT)
[2024-07-07 14:08] LABS: Adenovirus F 40/41 Not Detected (NOT DETECT); Astrovirus Not Detected (NOT DETECT); Cryptosporidium Not Detected (NOT DETECT); Cyclospora Cayetanensis Not Detected (NOT DETECT); Entamoeba Histolytica Not Detected (NOT DETECT); Giardia Lamblia Not Detected (NOT DETECT); Norovirus GI/GII Not Detected (NOT DETECT); Rotavirus A Not Detected (NOT DETECT); Sapovirus Not Detected (NOT DETECT)
[2024-07-07] MEDS ORDERED: propofoL 40 ML IV ONE (14:29)
--- NOTE | 2024-07-07 14:46 | NUR ---
07/07/24 1446 Jose Angel Dee History, Chart, Medications and Allergies reviewed before start of procedure. MONITOR INTACT WITH CONTINUOUS PULSE OXIMETRY, CONTINUOUS END TITAL CO2, 3-LEAD EKG AND INTERMITTENT BLOOD PRESSURE. 3-LEAD EKG REVIEWED WITH PHYSICIAN PRIOR TO START OF PROCEDURE. O2 VIA POM INTACT THROUGHOUT SEDATION/PROCEDURE. Bite Block Placed PRIOR TO PROCEDURE AND REMOVED BEFORE LEAVING ENDO ROOM 1.
[2024-07-07] MEDS ORDERED: propofoL 20 ML IV ONE (15:04)
[2024-07-07 15:26] VITALS: BP 131/91
--- NOTE | 2024-07-07 15:27 | NUR ---
1520 RETURNED TO ROOM FROM EGD. PT STOOD TO TRANSFER FROM STRETCHER TO BED, DENIES DIZZINESS, PAIN OR DISCOMFORT.
[2024-07-07 16:14] VITALS: BP 142/97
[2024-07-07] MEDS ORDERED: Pantoprazole Sodium 40 MG Tab PO SCH (16:30)
[2024-07-07] MEDS ORDERED: PANT20 PO (16:48)
[2024-07-07] MEDS ORDERED: ONDA4ODT MM (16:49)
--- NOTE | 2024-07-07 17:24 | NUR ---
PT DISCHARGED WITH INSTRUCTION. DECLINED WHEELCHAIR, AND KIDS ESCORTED PT OUT TO PRIVATE CAR FOR DC HOME. PLAN TO FOLLOW UP WITH PCP AND GI OUTPATIENT. PROTONIX BID FOR ONE MONTH.
== END 2024-07-07 17:21 | disposition home or self-care (01) ==
LOC: ER 10:04 → MEDS 14:35
PROVIDERS: Internal Medicine Gastroenterology; Student in an Organized Health Care Education/Training Program; ADMIT Internal Medicine
PROC: 0DB98ZX Excision of Duodenum, Via Natural or Artificial Opening Endoscopic, Diagnostic (ICD-10-PCS; principal; 2024-07-07 14:30)
PROC: 0DBA8ZX Excision of Jejunum, Via Natural or Artificial Opening Endoscopic, Diagnostic (ICD-10-PCS; principal; 2024-07-07 14:30)
DX: K22.11 Ulcer of esophagus with bleeding (principal); K31.89 Other diseases of stomach and duodenum; K52.9 Noninfective gastroenteritis and colitis, unspecified; K21.9 Gastro-esophageal reflux disease without esophagitis; I10 Essential (primary) hypertension; E78.5 Hyperlipidemia, unspecified; E11.9 Type 2 diabetes mellitus without complications; F31.81 Bipolar II disorder; F41.9 Anxiety disorder, unspecified; F17.210 Nicotine dependence, cigarettes, uncomplicated; Z79.899 Other long term (current) drug therapy; Z88.5 Allergy status to narcotic agent; Z88.8 Allergy status to other drugs, medicaments and biological substances; Z90.49 Acquired absence of other specified parts of digestive tract; Z90.710 Acquired absence of both cervix and uterus
CPT/HCPCS: 36415; 74177; 80053; 82947; 83690; 85025; 87507; 88305; 88342; 96374-59; 96375; 99285-25; A9270; G0378; J2405; J2470; J2704; J7120; Q9967

== ENCOUNTER → 2025-02-16 | Outpatient (CLI) | payer OTHER ==
[~2025-02-16] MED LIST changes: +ATORVASTATIN CA20 MG PO; +ERGO400; +FISH OIL 1,0001 EA10; +OMEP20ER PO; +ONDA4ODT MM; +PANT20 PO
[2025-02-17 09:50] LABS: Bacterial Vaginosis PCR Negative (NEGATIVE); Candida Group, PCR NOT DETECTED (NOT DETECT); Candida glabrata-krusei, PCR NOT DETECTED (NOT DETECT)
== END ==
LOC: LAB 14:05 → LAB SHORT 14:05
PROVIDERS: Nurse Practitioner Family
DX: B37.31 Acute candidiasis of vulva and vagina (principal)
CPT/HCPCS: 81515

== ENCOUNTER → 2025-02-24 | Outpatient (CLI) | payer OTHER ==
[2025-02-24 15:19] LABS: Bacterial Vaginosis PCR Negative (NEGATIVE); Candida Group, PCR NOT DETECTED (NOT DETECT); Candida glabrata-krusei, PCR NOT DETECTED (NOT DETECT)
== END | disposition home or self-care (01) ==
LOC: LAB SHORT 12:45 → LAB 12:45
PROVIDERS: Nurse Practitioner Family
DX: A59.9 Trichomoniasis, unspecified (principal)
CPT/HCPCS: 81515